=== PATIENT | male | born 1955 | race Caucasian/White ===

== ENCOUNTER 2019-09-20 08:33 | Emergency (ER) | payer OTHER ==
[2019-09-20 08:36] VITALS: BP 158/84; PULSE 72; TEMP 97.8; BMI 31.1
[2019-09-20] MEDS ORDERED: DIPHTH,PERTUSS(ACELL),TET 0.5 ML DISP.SYRIN IM ONE ×2 (08:55→09:10)
--- NOTE | 2019-09-20 09:41 | PDOC ---
History of Present Illness - General Chief Complaint: Injury Stated Complaint: CUT NOSE Time Seen by Provider: 09/20/19 08:39 History Source: Patient Exam Limitations: No Limitations Past History - Travel Traveled outside of the country in the last 30 days: No Close contact w/someone who was outside of country & ill: No - Past Medical History Allergies/Adverse Reactions: Allergies Allergy/AdvReac Type Severity Reaction Status Date / Time No Known Allergies Allergy Verified 09/20/19 08:36 Home Medications: Ambulatory Orders Naproxen [Naprosyn -] 500 mg PO BID #14 tablet 11/21/13 Oxycodone HCl/Acetaminophen [Percocet 5-325 mg Tablet -] 1 - 2 combo PO Q6H #14 tab 11/21/13 COPD: No HTN: Yes - Surgical History Abdominal Surgery: (hernia repair) - Psycho Social/Smoking Cessation Hx Smoking Status: No Smoking History: Never smoked Have you smoked in the past 12 months: No Number of Cigarettes Smoked Daily: 0 Hx Alcohol Use: No Drug/Substance Use Hx: No Substance Use Type: None Review of Systems - Review of Systems Able to Perform ROS?: Yes Comments:: 09/20/19 09:48 CONSTITUTIONAL: Absent: fever, chills, diaphoresis, generalized weakness, malaise, loss of appetite HEENT: Absent: rhinorrhea, nasal congestion, throat pain, throat swelling, difficulty swallowing, mouth swelling, ear pain, eye pain, visual Changes SKIN: Present: Laceration absent: rash, itching, pallor HEMATOLOGIC/IMMUNOLOGIC: Absent: easy bleeding, easy bruising, lymphadenopathy, frequent infections NEUROLOGIC: Absent: headache, loss of consciousness, focal weakness or paresthesias, dizziness, unsteady gait, seizure, mental status changes, bladder or bowel incontinence PSYCHIATRIC: Absent: anxiety, depression, suicidal or homicidal ideation, hallucinations. Is the patient limited Turkish proficient: No *Physical Exam - Vital Signs Last Vital Signs Temp Pulse Resp BP Pulse Ox 97.8 F 72 14 158/84 99 09/20/19 08:34 09/20/19 08:34 09/20/19 08:34 09/20/19 08:34 09/20/19 08:34 - Physical Exam 09/20/19 09:49 GENERAL: The patient is awake, alert, and fully oriented, in no acute distress. HEAD: Normal with no signs of trauma. EYES: Pupils equal, round and reactive to light, extraocular movements intact, sclera anicteric, conjunctiva clear. EXTREMITIES: Normal range of motion, no edema. NEUROLOGICAL: Normal speech, normal gait. PSYCH: Normal mood, normal affect SKIN: 1 cm flap laceration to the bridge of the nose, bleeding controlled. Warm , Dry, normal turgor, no rashes or lesions noted. Procedures - Laceration/Wound Repair Both Proximal Nose Wound Length: to 2.5 cm Wound Explored: clean, no foreign body present Wound's Depth, Shape: superficial, flap Irrigated w/ Saline: Yes Betadine Prep: Yes Wound Repaired With: Dermabond ED Treatment Course - Medications Given in the ED: ED Medications Discontinued Medications Generic Name Dose Route Start Last Admin Trade Name Robert PRN Reason Stop Dose Admin Diphtheria/Tetanus/Acell Pertussis 0.5 ml 09/20/19 08:55 09/20/19 09:12 Boostrix - IM 09/20/19 08:56 0.5 ml .ONCE ONE Administration Medical Decision Making - Medical Decision Making 09/20/19 09:49 The patient is a 64-year-old male who presents to the ER today with a laceration to the bridge of his nose. He states that he was at work when he was closing the hatchback of a car and it hit him on the bridge of the nose. He denies losing consciousness or dizziness. He states that there was a flap of skin that came down his nose after the injury which he put back in place. There is no active bleeding at this time. A/P: Laceration On exam there is a box flap-like laceration to the bridge of his nose approximately 1 cm long. Wound was cleaned under high-pressure normal saline approximately 30 cc. On exam skin is well adhesed with normal clotting factors. Discussed stitches versus Dermabond. Given that the wound is well approximated at this time patient opts for Dermabond. Dermabond applied to the bridge of the nose. Tetanus shot updated Discharge home with primary care follow-up. Return precautions given. I discussed the physical exam findings, ancillary test results and final diagnoses with the patient. I answered all of the patient's questions. The patient was satisfied with the care received and felt comfortable with the discharge plan and treatment plan. The Patient agrees to follow up with the primary care physician/specialist within 24-72 hours. Return precautions were given. Discharge - Discharge Information Problems reviewed: Yes Clinical Impression/Diagnosis: Laceration Condition: Stable Disposition: HOME - Admission No - Follow up/Referral Referrals: Noah Vanegas MD [Primary Care Provider] - - Patient Discharge Instructions Patient Printed Discharge Instructions: DI for Laceration Repair With Dermabond Additional Instructions: You had your cut fixed today with Dermabond, glue. This will fall off on its own in a couple of days. Your tetanus shot was updated today. Please keep the area clean and dry for 24 hours. You may wash tomorrow as normal and pat the area dry. Please keep the area clean. You may take Tylenol or Motrin as needed for pain. Follow the dosing instructions on the bottle. Return to the emergency department sooner if you have area of redness around the site, purulent drainage, fevers, or have any changes in your symptoms. - Post Discharge Activity Work/Back to School Note: Back to Work
== END 2019-09-20 10:02 | disposition home or self-care (01) ==
LOC: JERFT 08:33
PROC: 3E0234Z Introduction of Serum, Toxoid and Vaccine into Muscle, Percutaneous Approach (ICD-10-PCS; principal; 2019-09-20)
PROC: 0HQ1XZZ Repair Face Skin, External Approach (ICD-10-PCS; 2019-09-20)
DX: S01.21XA Laceration without foreign body of nose, initial encounter (principal); V03.09XA Pedestrian with other conveyance injured in collision with car, pick-up truck or van in nontraffic accident, initial encounter; Y92.488 Other paved roadways as the place of occurrence of the external cause; Y99.0 Civilian activity done for income or pay; Y93.89 Activity, other specified
CPT/HCPCS: 90715; 99282-25